=== PATIENT | male | born 1970 | race Caucasian/White ===

== ENCOUNTER → 2016-09-25 | Day surgery (SDC) | payer MEDICARE ==
[~2016-09-25] VITALS: Ht 182.8 cm; Wt 113.4 kg
[~2016-09-25] MED LIST: PAXIL20 M1 PO; PRILOSEC20 MG PO; PROZAC20 MG; ZYPREXA15 MG PO
--- NOTE | ~2016-09-25 | O ---
[place], [place] OPERATIVE NOTE NAME: NATHAN CARDOSO Fernando UNIT #: [id number] ROOM: DOCTOR: NINI BLAIR MD BIRTHDATE: [birth year] DOS: 09/25/2016 GASTROENDOSCOPIC REPORT HISTORY OF PRESENT ILLNESS: The patient is a 46-year-old who has presented with chief complaint of epigastric blood in the stool, undergone investigation. PAST MEDICAL HISTORY: Associated hypertension. PAST SURGICAL HISTORY: Neuropathy. FAMILY HISTORY: Noncontributory. ALLERGIES: No known medication. SOCIAL HISTORY: Smoker and alcohol consumer, 1 case of beer per week. PROCEDURE: Today's procedure part of investigation is colonoscopy plus polypectomy x3. PREMEDICATION: Versed and Diprivan. SCOPE: Olympus folding colonoscope 10L video. REPORT: After putting the patient in the left lateral position and after application of lubricant to rectal pouch and digital examination, scope was introduced; thereafter, under direct visualization, I advanced through the length of colon without difficulty. Polypoid lesion in the hepatic flexure with piecemeal polypectomy was done on sessile polypoid lesion was eradicated. Two other sessile polypoid lesion from sigmoid colon with piecemeal polypectomy removed. Air was suctioned out. Diverticulosis of moderate degree was seen. The patient extubated, tolerated procedure well. IMPRESSION: Diverticulosis, sessile polypoid lesion x2 at sigmoid colon, status post piecemeal polypectomy. Sessile polypoid lesion at the hepatic flexure, status post piecemeal polypectomy. PLAN: High fiber fruit diet. ACTIVITY: Ad patricia. FOLLOWUP: Routinely with you in office, p.r.n. visit with us in [facility]. The patient was advised and counseled to abstain from smoking and excessive alcohol consumption as he does. Advised high fiber vegetables, fruits and clinical reassessment. Thank you very much indeed. [place], [place] OPERATIVE NOTE NAME: WALKERNATHAN UNIT #: [id number] ROOM: DOCTOR: NINI BLAIR MD BIRTHDATE: [birth year] NINI BLAIR MD CM:OPRECORD:OPERATIVE NOTE [id number] NINI BLAIR MD 09/29/16 1037 interface
--- NOTE | ~2016-09-25 | O ---
[place], [place] OPERATIVE NOTE NAME: NATHAN CARDOSO Fernando UNIT #: [id number] ROOM: DOCTOR: NINI BLAIR MD BIRTHDATE: [birth year] DOS: 09/25/2016 GASTROENDOSCOPIC REPORT HISTORY OF PRESENT ILLNESS: The patient is a 46-year-old who has presented with chief complaint of epigastric blood in the stool, undergone investigation. PAST MEDICAL HISTORY: Associated hypertension. PAST SURGICAL HISTORY: Neuropathy. FAMILY HISTORY: Noncontributory. ALLERGIES: No known medication. SOCIAL HISTORY: Smoker and alcohol consumer ____. PROCEDURE: Today's procedure part of investigation is colonoscopy plus polypectomy x3. PREMEDICATION: Versed and Diprivan. SCOPE: Olympus folding colonoscope 10L video. REPORT: After putting the patient in the left lateral position and after application of lubricant to rectal pouch and digital examination, scope was introduced; thereafter, under direct visualization, I advanced through the length of colon without difficulty. Polypoid lesion in the hepatic flexure with piecemeal polypectomy was done on sessile polypoid lesion was eradicated. Two other sessile polypoid lesion from sigmoid colon with piecemeal polypectomy removed. Air was suctioned out. Diverticulosis of moderate degree was seen. The patient extubated, tolerated procedure well. IMPRESSION: Diverticulosis, sessile polypoid lesion x2 at sigmoid colon, status post piecemeal polypectomy. Sessile polypoid lesion at the hepatic flexure, status post piecemeal polypectomy. PLAN: High fiber fruit diet. ACTIVITY: Ad patricia. FOLLOWUP: Routinely with you in office, p.r.n. visit with us in GI Clinic. The patient was advised and counseled to abstain from smoking and excessive alcohol consumption as he does. Advised high fiber vegetables, fruits and clinical reassessment. Thank you very much indeed. [place], [place] OPERATIVE NOTE NAME: NATHAN CARDOSO UNIT #: [id number] ROOM: DOCTOR: NINI BLAIR MD BIRTHDATE: [birth year] NINI BLAIR MD CM:OPRECORD:OPERATIVE NOTE [id number] [id number] NINI BLAIR MD 09/29/16 1040 CHANELLE AWLSH.PP
[2016-09-25 12:20] VITALS: BP 144/99
[2016-09-25 13:23] VITALS: BP 131/90
[2016-09-25 13:33] VITALS: BP 128/95
[2016-09-25 13:46] VITALS: BP 139/89
== END | disposition home or self-care (01) ==
LOC: SDC 09-21 09:30
DX: D12.3 Benign neoplasm of transverse colon (principal); K63.5 Polyp of colon; K57.30 Diverticulosis of large intestine without perforation or abscess without bleeding; I10 Essential (primary) hypertension; F41.9 Anxiety disorder, unspecified; F31.9 Bipolar disorder, unspecified; K21.9 Gastro-esophageal reflux disease without esophagitis; Z98.890 Other specified postprocedural states; F17.210 Nicotine dependence, cigarettes, uncomplicated; Z83.3 Family history of diabetes mellitus; Z82.49 Family history of ischemic heart disease and other diseases of the circulatory system